=== PATIENT | female | born 1945 | race Caucasian/White ===

== ENCOUNTER 2025-03-18 08:23 | Outpatient (CLI) | payer OTHER, SELFPAY | END 2025-03-18 08:24 | disposition home or self-care (01) | LOC: AMB 03-19 11:34 | PROVIDERS: Visit Provider Emergency Medicine | DX: M54.9 Dorsalgia, unspecified (principal) | CPT/HCPCS: A0425; A0433 ==

== ENCOUNTER 2025-03-18 08:54 | Observation (INO) | payer OTHER, SELFPAY ==
[2025-03-18] VITALS (17 sets, daily range): BP systolic 145–209; BP diastolic 56–102; PULSE 65–84; RESP 14–18; TEMP 36.4–36.7; O2SAT 96–100; BMI 29.1
[2025-03-18 09:37] LABS: Appearance Urine Clear (Clear)
--- NOTE | 2025-03-18 10:06 | ED.GENADULT ---
HPI - General Adult General Date Seen: 03/18/25 Chief complaint: Back Injury/Pain Stated complaint: Back pain Time Seen by Provider: 03/18/25 10:01 History of Present Illness HPI narrative: 80 yo F brought to the ER today by EMS, with low back pain. EMS reports that they gave her 100 mcg of fentanyl and 2 mg of morphine for back pain. Glucose was 221. She moved into an independent living here in [place] yesterday, but did not lift or move anything herself. Her niece, who accompanies her, knows that she has been confused for about 4 days since Saturday and has had some urinary and bowel incontinence. Yesterday was talking about aunts on the floor and seeing people were not in the room. He says that she is on medications but has not been taking them as prescribed. Her PCP is through [facility]. Per history from her niece, she slipped and fell on the ice in September. She was hospitalized 1st [facility] and then transferred to [facility]. She had 3 cervical fractures leading to a cervical fusion. She had some low back pain but apparently did not have any lumbar fractures. It sounds like she had a long recovery in the hospital and then had to go to a TCU for rehab. She was finally doing better and is able to discharge to her own apartment in December. It sounds like she actually was thrive be in rehab and enjoyed social interactions and has been more alone in depressed since she has been her own apartment. Patient gets a lot of support from her niece who is with her here in the ER today and her other niece who lives [facility] of the [facility]. They recently found at a an assisted living here the [facility] and she moved from her apartment in [place] down to [place] yesterday. Apparently she had been looking forward to the movement was enthusiastic about her new living situation because she will have social actions, and even has a GM and a movie theater. The patient has not been doing any physical labor moving her possessions into her new assisted living. Family notes that she has been a little bit off since Saturday, 4 days ago. She has been a little bit more withdrawn, less communicative than normal. She has also been confused. She has actually been hallucinating. She apparently said she saw aunts that no one else could see and also that she was seeing people in the room other people could not see. On Saturday she started to be incontinent of urine. Does not normal for her. She also apparently had diarrhea with a few incontinent stools. Sounds like her stools were liquidy and brown, not bloody or black. This morning her niece came to check on her early. They were looking forward to her 1st breakfast at a new living situation. However she is complaining of bad back pain and was unable to get out of bed. She also continued to be confused. She was not able to get out of bed with her nieces assistance of the called 03 08 and she was brought here to the ER. Related Data Home Medications ?Medication ?Instructions ?Recorded ?Confirmed QC Turmeric Complex 2 cap PO DAILY 03/18/25 03/18/25 acetaminophen 500 mg tablet 1,000 mg PO TID PRN 03/18/25 03/18/25 (Acetaminophen Extra Strength) aloe vera 25 mg capsule 50 mg PO DAILY 03/18/25 03/18/25 apple cider vinegar 1 tab PO DAILY 03/18/25 03/18/25 ascorbic acid (vitamin C) 500 mg 500 mg PO DAILY 03/18/25 03/18/25 capsule calcitonin (salmon) 200 1 spray intranasal (ALT) DAILY 03/18/25 03/18/25 unit/actuation nasal spray cholecalciferol (vitamin D3) 50 50 mcg PO HS 03/18/25 03/18/25 mcg (2,000 unit) capsule cyanocobalamin (vitamin B-12) 500 500 mcg PO DAILY 03/18/25 03/18/25 mcg tablet (B-12 DOTS) empagliflozin 25 mg tablet 25 mg PO DAILY 03/18/25 03/18/25 (Jardiance) ferrous sulfate 325 mg (65 mg 325 mg PO DAILY 03/18/25 03/18/25 iron) tablet (FeroSul) lisinopril 2.5 mg tablet 2.5 mg PO DAILY 03/18/25 03/18/25 metformin 750 mg tablet,extended 1,500 mg PO QPM 03/18/25 03/18/25 release 24 hr omeprazole 20 mg capsule,delayed 20 mg PO DAILY 03/18/25 03/18/25 release pravastatin 40 mg tablet 40 mg PO QHS 03/18/25 03/18/25 PFSH PFSH Social History Smoking Status: Unknown if ever smoked Do you use any of these nicotine containing products: None How often do you have a drink containing alcohol: never AUDIT-C Alcohol total score: 0 Non-prescribed substance use: denies use Exam Narrative: Exam Narrative: Constitutional: Appears well-developed and well-nourished. Alert. Initially has poor eye contact and is looking around the room and staring at the ceiling but not really looking at me. When engaged she is able to answer simple questions. She does know the month and know she is at the hospital. She was not aware she is at [facility]. She is not really able to tell me any history for the past few days. When I ask her if any things hurting she says no she feels fine. However when I asked her to sit up she grimaces and is not able to sit up because she is having bad hip and low back pain. HENT: Head: Atraumatic. Nose: Nose normal. Mouth/Throat: Oral mucosa is clear but dry. Not desiccated or cracked no trismus. Pharynx normal. Tonsils symmetric. No tonsillar enlargement, erythema, or exudate. Eyes: Conjunctivae normal. EOM normal. Pupils equal, round, and reactive to light. No scleral icterus. Neck: Normal range of motion. Neck supple. No tracheal deviation present. No posterior midline tenderness. Cardiovascular: Normal rate, regular rhythm. No gallop. No friction rub. No murmur heard. Symmetric radial and PT artery pulses Pulmonary/Chest: Effort normal. No stridor. No respiratory distress. No wheezes. No rales. No rhonchi . No tenderness. Abdominal: Soft. Bowel sounds normal. No distension. No mass. No tenderness. No rebound. No guarding. Musculoskeletal: She has rolled with assistance of nurses. I do not see any bruising or redness on her back. No definite point tenderness over the T or L-spine. She is having bad back pain that limits her ability to sit up but difficult to localize it. No definite CVA tenderness. RUE: Normal range of motion. No tenderness. No deformity LUE: Normal range of motion. No tenderness. No deformity RLE: Normal range of motion. Trace edema. No tenderness. No deformity LLE: Normal range of motion. Trace edema. No tenderness. No deformity Neurological: Alert and oriented to person, place, . She knows the month but not the date.. Normal strength. CN II-VII intact. No sensory deficit. GCS eye subscore is 4. GCS verbal subscore is 5. GCS motor subscore is 6. Normal coordination Sensory: Normal light touch sensation bilaterally on the anteromedial thigh (L3), medial malleolus (L4), dorsal first web space (L5), lateral malleolus (S1). Strength: 5/5 strength hip flexors on the left but she is limited with right hip flexors because she has a lot of pain when she tries to lift right leg. 5/5 strength in the quadriceps (L4) on the right and left 5/5 strength in the tibialis anterior 5/5 strength in the EHL (L5) on the right and left 5/5 strength in the gastrocnemius (S1) on the right and left 5/5 strength in the hamstring on the right and left Negative straight leg raise bilaterally. Skin: Skin is warm and dry. No rash noted. No pallor. Normal capillary refill. Psychiatric: She is pleasant. Not agitated or combative. Limited Const: Vital Signs, click to edit/add: Vital Signs - 24 hr 03/18/25 09:06 03/18/25 09:06 03/18/25 09:09 Temperature 98.1 F Pulse Rate 76 77 Pulse Rate [Pulse Oximeter] 84 Respiratory Rate 18 Blood Pressure 167/59 H Blood Pressure [Ri ght Upper Arm] 167/59 H Pulse Oximetry 100 100 100 Oxygen Delivery Me thod Room Air Room Air Room Air 03/18/25 09:30 03/18/25 09:32 03/18/25 10:00 Temperature Pulse Rate 76 77 68 Pulse Rate [Pulse Oximeter] Respiratory Rate Blood Pressure 157/64 H Blood Pressure [Ri ght Upper Arm] Pulse Oximetry 99 99 100 Oxygen Delivery Me thod Room Air Room Air Room Air 03/18/25 10:02 03/18/25 10:30 03/18/25 10:32 Temperature Pulse Rate 72 72 71 Pulse Rate [Pulse Oximeter] Respiratory Rate Blood Pressure 174/56 H 154/61 H Blood Pressure [Ri ght Upper Arm] Pulse Oximetry 100 99 99 Oxygen Delivery Me thod Room Air Room Air Room Air 03/18/25 10:59 03/18/25 11:05 03/18/25 11:22 Temperature 97.7 F Pulse Rate 71 Pulse Rate [Pulse Oximeter] Respiratory Rate Blood Pressure 209/102 H Blood Pressure [Ri ght Upper Arm] Pulse Oximetry 100 Oxygen Delivery Me thod Room Air Room Air Course Vital Signs Vital signs: Initial Vital Signs Temperature 98.1 F 03/18/25 09:06 Temperature Source Temporal Artery Scan 03/18/25 09:06 Pulse Rate 76 03/18/25 09:06 Respiratory Rate 18 03/18/25 09:06 Blood Pressure 167/59 H 03/18/25 09:06 Blood Pressure Mean 95 03/18/25 09:06 Blood Pressure Position Sitting 03/18/25 09:06 Pulse Oximetry 100 03/18/25 09:06 Oxygen Delivery Method Room Air 03/18/25 09:06 Vital Signs Temperature 98.1 F 03/18/25 09:06 Pulse Rate 76 03/18/25 09:06 Respiratory Rate 18 03/18/25 09:06 Blood Pressure 167/59 H 03/18/25 09:06 Pulse Oximetry 100 03/18/25 09:06 Oxygen Delivery Method Room Air 03/18/25 09:06 Temperature 97.7 F 03/18/25 10:59 Pulse Rate 71 03/18/25 11:22 Respiratory Rate 18 03/18/25 09:06 Blood Pressure 209/102 H 03/18/25 11:05 Pulse Oximetry 100 03/18/25 11:22 Oxygen Delivery Method Room Air 03/18/25 11:22 Medications Administered Medications: Discontinued Medications Generic Name Dose Route Start Last Admin Trade Name Freq PRN Reason Stop Dose Admin Acetaminophen 1,000 mg 03/18/25 10:41 03/18/25 10:59 Acetaminophen 500 Mg Tablet PO 03/18/25 10:42 1,000 mg ONCE ONE Administration Sodium Chloride 1,000 mls @ 1,000 mls/hr 03/18/25 10:45 03/18/25 11:00 0.9 % Sodium Chloride 1000 Ml IV 03/18/25 11:44 1,000 mls/hr .Q1H [place] Administration Ketorolac Tromethamine 15 mg 03/18/25 10:41 03/18/25 10:59 Ketorolac 15 Mg/Ml Inj IVP 03/18/25 10:42 15 mg ONCE ONE Administration Medical Decision Making MDM Narrative Medical decision making narrative: 80-year-old female brought to the ER today by EMS. She is accompanied by her family. There are couple of issues for this patient. 1. The reason why she is here in the ER today is because she has got low back pain. She does have history of a fall on the ice in September of 2024 leading to a complicated C-spine fracture requiring surgery. It sounds like she did not have any significant lumbar spine injury from that fall but did have some low back pain. She has no recent falls that she or her family are aware of. CT scan of her abdomen and lumbar spine does show evidence for an lung L1 compression fracture which is mild. It is possible that this L1 fracture is acute although unclear however would have happened. If it is it could explain her low back pain. This point she is neurologically intact in her legs. No evidence for other fractures such as burst fracture. No evidence for pelvic or hip fracture. At this point I do not think she needs transfer for neurosurgical consultation or intervention. However she still is having low back pain which limits her ability to sit up and walk. She will require hospitalization for pain control, physical therapy, further workup. 2. Family notes the patient has a chains in her sensorium over the past few days where she has become less interactive, seemingly confused, and sometimes having loosen a shins. Initially they thought this was probably just stress from being moved to a new living situation. However we did consider broad differential. Head CT is negative for bleed, mass, hydrocephalus. She is not having headache. No neck stiffness. She is not febrile. Despite that consider possible for infection. Blood cultures are pending. White count is normal. Urinalysis negative for infection. No evidence for intra-abdominal infection on CT. Incidentally she did have an episode of diarrhea a couple of days ago so if she has persistent diarrhea, we could consider stool studies to look for bacterial enteritis or C diff. she is not having any cough or shortness of breath. Lung sounds are clear. COVID is negative Electrolytes normal. Kidney function normal. Screening EKG normal troponin undetectable. She is not having any chest pain Discussed with our hospitalist, Dr. uFnez who graciously agrees to admit for supportive care, pain control for her back, further workup. Lab Data Labs: Lab Results 03/18/25 03/18/25 03/18/25 Range/Units 09:30 10:48 11:04 WBC 5.44 (4.50-11.00) K/uL RBC 4.21 (4.00-5.20) m/uL Hgb 11.5 L (12.0-16.0) gm/dL Hct 36.9 (33.0-51.0) % MCV 88 (80-100) fL MCH 27 (26-34) pg MCHC 31 L (32-36) gm/dL RDW Coeff of Mariam 14.4 (11.5-15.5) % Plt Count 202 (140-440) K/uL Neut % (Auto) 71.3 (42.0-72.0) % Lymph % (Auto) 17.1 L (20-44) % [place] % (Auto) 7.7 (0.0-11.0) % Eos % (Auto) 3.1 (0.0-7.0) % Baso % (Auto) 0.6 (0.0-3.0) % Neut # (Auto) 3.88 (1.7-7.0) K/uL Lymph # (Auto) 0.90 (0.90-2.90) K/uL [place] # (Auto) 0.40 (0.00-0.90) K/UL Eos # (Auto) 0.17 (0.00-0.50) K/uL Baso # (Auto) 0.03 (0.00-0.30) K/uL Abs Immat Gran (auto) 0.01 (0.00-0.30) K/uL Imm/Tot Granulo (auto) 0.2 % Sodium 136 (135-149) mmol/L Potassium 4.1 (3.6-5.1) mmol/L Chloride 102 (96-114) mmol/L Carbon Dioxide 28 (20-32) mmol/L Anion Gap 6 L (7-15) mEq/L BUN 18 (7-30) mg/dL Creatinine 0.7 (0.5-1.5) mg/dL Estimated GFR 86 ml/min Glucose 145 H (60-115) mg/dL Lactate 0.8 (0.5-1.9) mmol/L Calcium 9.1 (8.4-10.6) mg/dL Total Bilirubin 1.5 (0.1-1.5) mg/dL AST 20 (12-35) U/L ALT 9 (4-35) U/L Alkaline Phosphatase 131 (40-150) U/L Troponin I 0.02 (0.01-0.04) ng/mL Total Protein 6.6 (6.0-8.3) g/dL Albumin 3.8 (3.3-5.0) g/dL Lipase 37 (23-300) U/L TSH 2.040 (0.270-4.200) uIU/mL Urine Color Yellow (Yellow) Urine Appearance Clear (Clear) Urine pH 7.0 (5.0-8.5) Ur Specific [place] 1.015 (1.000-1.030) Urine Protein Negative (Negative) Urine Glucose (UA) 2+ A (Negative) Urine Ketones Negative (Negative) Urine Blood Trace-intact A (Negative) Urine Nitrite Negative (Negative) Urine Bilirubin Negative (Negative) Urine Urobilinogen 1.0 (0.2-1.0) Ur Leukocyte Esterase Negative (Negative) Urine RBC 5-10 A (0-2) Urine WBC 0-2 (0-5) Ur Squamous Epith Cells None (None-Few) Urine Bacteria None (None) SARS-CoV-2 (PCR) Negative SARS-CoV-2 (Negative) Influenza Type A (PCR) Negative PCR FLU A (Negative) Influenza Type B (PCR) Negative PCR FLU B (Negative) POC Creatinine 0.8 (0.6-1.3) mg/dl Imaging Data CT scan - head: Attestation: I have reviewed the pertinent imaging results. Radiologist's impression: IMPRESSION: 1. No acute intracranial noncontrast CT findings. 2. [id number] brain parenchymal involutional changes. 3. Right posterior scalp a 17 millimeter oval soft tissue attenuation lesion which is a nonspecific imaging appearance, although a epidermal inclusion cyst is one differential consideration. Correlate with physical exam. CT scan - abdomen: Attestation: I have reviewed the pertinent imaging results. Radiologist's impression: IMPRESSION: 1. No discrete acute abdominopelvic process. No obstruction. No hydroureteronephrosis. No imaging findings to explain the reported clinical symptoms. 2. Refer to dedicated lumbar spine CT of same day for assessment of the vertebral column. CT L spine: Attestation: I have reviewed the pertinent imaging results. Radiologist's impression: Impression: Subtle compression fracture of the anterosuperior L1 endplate without evidence of additional compression fractures or extension to the posterior elements. ECG Data Attestation: I personally reviewed and interpreted this ECG as follows: Interpretation: Normal sinus rhythm Rate 79 MN interval 162 Normal QRS axis. No pathologic Q-waves. No ST segment elevation or depression QTC 384, QTC 440 Discharge Plan Discharge Clinical Impression: Closed compression fracture of L1 vertebra, Acute alteration in mental status Patient Disposition: Admitted As Observation Condition: Guarded
--- NOTE | 2025-03-18 10:41 | CRLHL7_ITS ---
For Patients: As a result of the Century Cures Act, medical imaging exams and procedure reports are released immediately into your electronic medical record. You may view this report before your referring provider. If you have questions, please contact your health care provider. Indication: Low back pain Technique: Volumetric multidetector CT images of the lumbar spine were obtained without the administration of IV contrast. Comparison: CT abdomen and pelvis March 18, 2025 Findings: Minimal compression fracture change of the superior L1 endplate is appreciated with additional Schmorl`s defects seen throughout. There is preserved lumbar lordosis without significant spondylolisthesis. There is moderate degenerative disc disease with disc height loss and marginal osteophyte formation worst at the L2-L3 level. There is [id number] spinal canal narrowing at the L2-L3 and L3-L4 levels. There is moderate to severe focal narrowing at the L4-L5 level. There is a nondisplaced fracture through the superior L1 endplate without evidence of extension to the posterior elements. The paraspinous soft tissues are grossly within normal limits. Impression: Subtle compression fracture of the anterosuperior L1 endplate without evidence of additional compression fractures or extension to the posterior elements. Please note that all CT scans at this facility use dose modulation, iterative reconstruction, and/or weight-based dosing when appropriate to reduce radiation dose to as low as reasonably achievable. Dictated by Saw Harrison MD @ 03/18/2025 11:54:21 AM (Electronically Signed)
--- NOTE | 2025-03-18 10:41 | CRLHL7_ITS ---
For Patients: As a result of the Century Cures Act, medical imaging exams and procedure reports are released immediately into your electronic medical record. You may view this report before your referring provider. If you have questions, please contact your health care provider. INDICATION: ABD PAIN, BACK PAIN TECHNIQUE: CT abdomen and pelvis acquired with 81 cc Isovue 370 IV contrast. COMPARISON: None. FINDINGS: Lower chest: Motion. ABDOMEN: Liver: Normal enhancement. No focal suspicious hepatic lesions. Gallbladder and biliary: Cholecystectomy. Pneumobilia. Normal caliber bile ducts. Spleen: Normal size and enhancement. Pancreas: Relatively atrophic pancreas. Adrenal glands: Normal adrenal glands. Kidneys and ureters: Renal cysts. Subcentimeter hypodensities are too small to characterize however statistically represent cysts. Normal parenchymal enhancement. No hydroureteronephrosis. GI tract: The stomach is relatively decompressed. Normal caliber small and large bowel loops. Normal appendix. Vascular structures: Normal caliber aorta with atherosclerotic calcifications. Lymph nodes: No lymphadenopathy in the abdomen or pelvis by size criteria. Peritoneum: No free air, free fluid, or focal drainable fluid collection. PELVIS: Genitourinary system: Normal urinary bladder. Hysterectomy. SKELETAL STRUCTURES AND SOFT TISSUES: Vertebral body hemangiomas. Lumbar spondylosis. Refer to dedicated lumbar spine CT of same day for assessment of the vertebral column. SI joint arthrosis. IMPRESSION: 1. No discrete acute abdominopelvic process. No obstruction. No hydroureteronephrosis. No imaging findings to explain the reported clinical symptoms. 2. Refer to dedicated lumbar spine CT of same day for assessment of the vertebral column. Please note that all CT scans at this facility use dose modulation, iterative reconstruction, and/or weight-based dosing when appropriate to reduce radiation dose to as low as reasonably achievable. Dictated by Mu Swan MD @ 03/18/2025 11:59:23 AM (Electronically Signed)
--- NOTE | 2025-03-18 10:41 | CRLHL7_ITS ---
For Patients: As a result of the Century Cures Act, medical imaging exams and procedure reports are released immediately into your electronic medical record. You may view this report before your referring provider. If you have questions, please contact your health care provider. INDICATION: Altered mental status. COMPARISON: None. TECHNIQUE: CT of the head without contrast. FINDINGS: Brain, ventricles, and extra-axial spaces: No acute intracranial hemorrhage. Urban-white differentiation is grossly preserved. [id number] hypoattenuating changes in the white matter which are nonspecific, but commonly attributable to chronic microangiopathic change. Mild to moderate parenchymal volume loss with commensurate size of the ventricles and sulci. Bones: No acute osseous findings. Scattered mild mucosal thickening in the paranasal sinuses. Leftward deviation of the nasal septum. Visualized mastoid air cells are clear. Additional findings: Oval sharply marginated right posterior scalp 17 millimeter soft tissue attenuation lesion centered in the subcutaneous fat (2/36). Status post bilateral lens replacement. IMPRESSION: 1. No acute intracranial noncontrast CT findings. 2. Keae-wq-[id number] brain parenchymal involutional changes. 3. Right posterior scalp a 17 millimeter oval soft tissue attenuation lesion which is a nonspecific imaging appearance, although a epidermal inclusion cyst is one differential consideration. Correlate with physical exam. Please note that all CT scans at this facility use dose modulation, iterative reconstruction, and/or weight-based dosing when appropriate to reduce radiation dose to as low as reasonably achievable. Dictated by Rowdy Agee MD @ 03/18/2025 11:52:24 AM (Electronically Signed)
[2025-03-18] MEDS: ACETAMINOPHEN 500 MG TABLET 1000 MG PO (10:59)
[2025-03-18 11:11] LABS: Creatinine, Point-of-Care* 0.8 mg/dl (0.6-1.3); Lactate* 0.8 mmol/L (0.5-1.9)
[2025-03-18 11:14] LABS: Hematocrit 36.9 % (33.0-51.0); Hemoglobin* 11.5 gm/dL (12.0-16.0); Immature Granulocytes Abs Auto 0.01 K/uL (0.00-0.30); Immature Granulocytes Pct Auto 0.2 %; Mean Corpuscular HGB Conc 31 gm/dL (32-36); Mean Corpuscular Hemoglobin 27 pg (26-34); Mean Corpuscular Volume 88 fL (80-100); RDW Coefficient of Variation % 14.4 % (11.5-15.5); Red Blood Count 4.21 m/uL (4.00-5.20); White Blood Count* 5.44 K/uL (4.50-11.00)
[2025-03-18 11:23] LABS: Lymphocytes Absolute Auto 0.90 K/uL (0.90-2.90); Slide Review Reflex No
[2025-03-18 11:49] LABS: Albumin* 3.8 g/dL (3.3-5.0); Chloride* 102 mmol/L (96-114); Potassium* 4.1 mmol/L (3.6-5.1); Sodium* 136 mmol/L (135-149)
[2025-03-18 11:51] LABS: Alanine Aminotransferase* 9 U/L (4-35); Aspartate Amino Transferase* 20 U/L (12-35); Blood Urea Nitrogen* 18 mg/dL (7-30); Creatinine* 0.7 mg/dL (0.5-1.5); Estimated Glomerular Filt Rate 86 ml/min
[2025-03-18 11:52] LABS: Alkaline Phosphatase* 131 U/L (40-150); Anion Gap 6 mEq/L (7-15); Bilirubin Total* 1.5 mg/dL (0.1-1.5); Calcium* 9.1 mg/dL (8.4-10.6); Carbon Dioxide* 28 mmol/L (20-32); Glucose* 145 mg/dL (60-115); Total Protein* 6.6 g/dL (6.0-8.3)
[2025-03-18 11:54] LABS: PCR FLU A Negative PCR FLU A (Negative); PCR FLU B Negative PCR FLU B (Negative); SARS PCR* Negative SARS-CoV-2 (Negative)
[2025-03-18 12:38] LABS: TSH With Reflex to FT4* 2.040 uIU/mL (0.270-4.200)
[2025-03-18] MEDS: NAPROXEN 250 MG TABLET PO (15:18)
--- NOTE | 2025-03-18 15:28 | P.IMHP_ITS ---
Assessment and Plan Assessment and plan (1) Acute alteration in mental status: Problem comment: Cause is uncertain. Possibly related to moving residence from [place] to [place]. Continue to monitor. Status: Acute (2) Low back pain: Problem comment: Episode of severe low back pain this morning. Examination today is reassuring. PT to evaluate. If she is able to ambulate I think she could be discharged to manage this as an outpatient. Due to dementia and acute confusion would like to avoid opioids. Will try Naprosyn and acetaminophen for pain management. Status: Acute (3) Closed compression fracture of L1 vertebra: Problem comment: I suspect this is old, possibly from September 2024, rather than acute Status: Acute (4) Dementia: Problem comment: Uncertain severity. Status: Acute (5) Diabetes mellitus type 2, controlled: Problem comment: Check hemoglobin A1c. Monitor blood sugars. Status: Acute (6) Hypertension: Status: Acute Plan Patient is admitted to the hospital for evaluation management of acute on chronic back pain and acute on chronic confusion. Based on clinical course further evaluation and treatment to be pursued. Obtain records from outside hospital to understand other potential problems and previous diagnosis and baseline functioning. Total Time Spent Total Time Spent: Total time spent today is 70 minutes in coordination of care and discussing with patient and daughter and other providers ongoing evaluation management of above problems Hospitalist- H&P: HPI History of Present Illness Date Seen: 03/18/25 Chief complaint: Back pain Narrative: Catalina Grant is a 80 year old female with dementia admitted to the hospital with acute on chronic back pain and acute on chronic confusion. Patient is seen with her niece who gives the medical history as the patient is unable to give any significant history and outside medical records are not currently available. Patient was living in her own home in [facility]. There was concern that she was not doing well and would benefit from assisted living. Her niece Ruth who is healthcare power of disability attorney and closest family lives in [place]. She made arrangements this summer for her to move to [facility] on the [facility]. That move occurred yesterday. She did see more confused yesterday and the niece thought this was just because of the move. This morning she seemed even more confused and was complaining of severe low back pain. Because of this she was brought to the emergency room. The paramedics gave her fentanyl and morphine for her back pain. There is no evidence that she had an injury to her back that is new. She cannot recall a fall and her niece does not recall any event yesterday with the move that would have caused this. According to the knee she has been more confused recently and she has been hallucinating on occasion. There is also been some increased problems with her managing bowel and bladder and she has occasionally had episodes of incontinence. September of 2024 she fell on ice and sustained cervical fractures leading to cervical spine fusion. At that time she also apparently had a minor lumbar fracture which required no specific therapy. She was hospitalized at [facility] and then transferred to [facility] for rehab. In December she moved back home with outpatient rehab and ongoing support from her niece was visiting 3 times a week. Her knees with setting up her medications and checking on her. The impression was that she was doing quite well but would benefit from being in a more social environment and a more supervised environment such as [facility]. The patient has a brother who who was previously power of disability attorney but has dementia now. Ruth who is current power of disability attorney also has a sister Kayleigh but Kayleigh lives 3 hours away and is not as available for day-to-day cares. Review of Systems Narrative: No recent illness, dyspnea, cough, chest pain, abdominal pain. Chronic back pain which was much worse this morning. Some bowel bladder incontinence. The bowel incontinence associated with some diarrhea recently. The niece notes that her aunt eats a very poor diet. She does not think that her aunt is able to provide dental hygiene for herself. Medical Decision Making Medical Decision Making Has patient completed a Health Care Directive: Yes [facility] Medical History (Updated 03/18/25 @ 15:49 by Sergey Rivera MD) Dementia ?F03.90 - Unspecified dementia, unspecified severity, without behavioral disturbance, psychotic disturbance, mood disturbance, and anxiety (ICD-10) Hyperlipidemia ?E78.5 - Hyperlipidemia, unspecified (ICD-10) Diabetes mellitus type 2, controlled ?E11.9 - Type 2 diabetes mellitus without complications (ICD-10) Hypertension ?I10 - Essential (primary) hypertension (ICD-10) Cervical spine fracture ?S12.9XXA - Fracture of neck, unspecified, initial encounter (ICD-10) Surgical History (Updated 03/18/25 @ 15:43 by Sergey Rivera MD) S/P cervical spinal fusion ?Z98.1 - Arthrodesis status (ICD-10) Social History (Updated 03/18/25 @ 15:44 by Sergey Rivera MD) Narrative: See HPI for details. Code status is DNR. Power of disability attorney is Ruth her niece. Nonsmoker. Does not drink alcohol. What is your current living situation?: I presently have a place to live Problems where you live: no known problems Problems where you live details: NA In the past 12 months, utilities in danger of being shut off: no In past 12 months, lack of transportation kept you from medical appts, meetings, work, or getting things needed for daily living: no In the past 12 mos, have been you worried that your food would run out before you had money to buy more?: never true In the past 12 mos, the food you bought just didn't last and you didn't have money to buy more?: never true Highest level of school completed/degree received: some college, no degree Smoking Status: Never smoker Do you use any of these nicotine containing products: None How often do you have a drink containing alcohol: never AUDIT-C Alcohol total score: 0 Non-prescribed substance use: denies use Caffeine: Yes (some pop) How often does anyone, including family, friends and others, physically hurt you : never How often does anyone, including family, friends and others, insult or talk down to you: never How often does anyone, including family, friends and others, threaten you with harm: never How often does anyone, including family, friends and others, scream or curse at you: never service: No Meds Home Medications and Allergies Home Medications ?Medication ?Instructions ?Recorded ?Confirmed ?Type QC Turmeric Complex 2 cap PO DAILY 03/18/2503/08 History acetaminophen 500 mg tablet 1,000 mg PO TID PRN 03/18/25 History (Acetaminophen Extra Strength) aloe vera 25 mg capsule 50 mg PO DAILY 03/18/2503/08 History apple cider vinegar 1 tab PO DAILY 03/18/2503/08 History ascorbic acid (vitamin C) 500 mg 500 mg PO DAILY 03/1803/18/25 History capsule cholecalciferol (vitamin D3) 50 50 mcg PO HS 03/18/25 03/18/25 History mcg (2,000 unit) capsule cyanocobalamin (vitamin B-12) 500 500 mcg PO DAILY 06/0103/18/25 History mcg tablet (B-12 DOTS) empagliflozin 25 mg tablet 25 mg PO QPM 03/18/2503/18 History (Jardiance) ferrous sulfate 325 mg (65 mg 325 mg PO DAILY 03/18/25 03/18/25 History iron) tablet (FeroSul) lisinopril 2.5 mg tablet 2.5 mg PO DAILY 03/18/2506/01 History metformin 750 mg tablet,extended 1,500 mg PO QPM 03/1803/18/25 History release 24 hr omeprazole 20 mg capsule,delayed 20 mg PO DAILY 03/18/25 History release pravastatin 40 mg tablet 40 mg PO HS 03/18/25 5 History Allergies Allergy/AdvReac Type Severity Reaction Status Date / Time No Known Drug Allergies Allergy Verified 03/18/25 13:14 Exam Narrative: Exam Narrative: She is alert pleasant and in no distress. She is not oriented to her circumstances. She does not know where she is or how she got here. She is denying any problems at this time. Head is without apparent trauma. Eyes normal. Pupils equal round reactive to light. Extraocular movements are full. Oropharynx with dry mucous membranes. Moderate dental decay with poor dental hygiene. Neck is supple without mass or adenopathy. Respirations are clear to auscultation. Cardiovascular: S1, S2, regular rate and rhythm. Abdomen is soft without tenderness or mass. Examination of her back is normal without obvious trauma. Palpation shows that she has mild lumbar area tenderness without focal tenderness. This extends somewhat into her right low back towards her right iliac crest. She moves her upper extremities well. Lower extremities also with symmetric full strength in hip flexion, knee flexion and extension, ankle flexion and dorsiflexion. No edema. Diminished but intact pedal pulses. No rash. Const: Vital Signs, click to edit/add: Vital Signs - 24 hr 03/18/25 09:06 03/18/25 09:06 03/18/25 09:09 Temperature 98.1 F Pulse Rate 76 77 Pulse Rate [Pulse Oximeter] 84 Pulse Rate [Right Pulse Oximeter] Respiratory Rate 18 Blood Pressure 167/59 H Blood Pressure [Le ft Arm] Blood Pressure [Ri ght Upper Arm] 167/59 H Pulse Oximetry 100 100 100 Oxygen Delivery Me thod Room Air Room Air Room Air 03/18/25 09:30 03/18/25 09:32 03/18/25 10:00 Temperature Pulse Rate 76 77 68 Pulse Rate [Pulse Oximeter] Pulse Rate [Right Pulse Oximeter] Respiratory Rate Blood Pressure 157/64 H Blood Pressure [Le ft Arm] Blood Pressure [Ri ght Upper Arm] Pulse Oximetry 99 99 100 Oxygen Delivery Me thod Room Air Room Air Room Air 03/18/25 10:02 03/18/25 10:30 03/18/25 10:32 Temperature Pulse Rate 72 72 71 Pulse Rate [Pulse Oximeter] Pulse Rate [Right Pulse Oximeter] Respiratory Rate Blood Pressure 174/56 H 154/61 H Blood Pressure [Le ft Arm] Blood Pressure [Ri ght Upper Arm] Pulse Oximetry 100 99 99 [facility] Room Air Room Air 03/18/25 10:59 03/18/25 11:05 03/18/25 11:22 Temperature 97.7 F Pulse Rate 71 Pulse Rate [Pulse Oximeter] Pulse Rate [Right Pulse Oximeter] Respiratory Rate Blood Pressure 209/102 H Blood Pressure [Le ft Arm] Blood Pressure [Ri ght Upper Arm] Pulse Oximetry 100 [facility] Room Air 03/18/25 13:00 03/18/25 14:07 Temperature 97.7 F Pulse Rate Pulse Rate [Pulse Oximeter] 66 Pulse Rate [Right Pulse Oximeter] 65 Respiratory Rate 18 18 Blood Pressure Blood Pressure [Le ft Arm] 150/63 H Blood Pressure [Ri ght Upper Arm] 149/59 H Pulse Oximetry 99 Oxygen Delivery Ne thod Room Air Hospitalist - H&P: Result Labs Labs: Short CBC 03/18/25 Range/Units 11:04 WBC 5.44 (4.50-11.00) K/uL Hgb 11.5 L (12.0-16.0) gm/dL Hct 36.9 (33.0-51.0) % Plt Count 202 (140-440) K/uL BMP 03/18/25 11:04 Sodium 136 Potassium 4.1 Chloride 102 Carbon Dioxide 28 BUN 18 Creatinine 0.7 Glucose 145 H Calcium 9.1 Cardiac Enzymes 03/18/25 Range/Units 11:04 Troponin I 0.02 (0.01-0.04) ng/mL Liver Function 03/18/25 Range/Units 11:04 Total Bilirubin 1.5 (0.1-1.5) mg/dL AST 20 (12-35) U/L ALT 9 (4-35) U/L Alkaline Phosphatase 131 (40-150) U/L Albumin 3.8 (3.3-5.0) g/dL Urine 03/18/25 Range/Units 09:30 Urine Color Yellow (Yellow) Urine Appearance Clear (Clear) Urine pH 7.0 (5.0-8.5) Ur Specific [place] 1.015 (1.000-1.030) Urine Protein Negative (Negative) Urine Glucose (UA) 2+ A (Negative)
--- NOTE | 2025-03-18 16:20 | PC.SOCIAL ---
Discharge planning: composition worker completed the Initial Psychosocial Assessment for the pt with her niece Ruth over the phone. See the below answers... Initial Psychosocial Assessment: 1.? Assessment completed with: Patient, Spouse, Child, Friend, Other: Niece, Ruth, via phone. 2.? Pt lives at address and phone number on face sheet? Own home; facility___Yes. [facility]. , Other: 3.?Insurance information? on face sheet is correct? Pt also has Medicare. Pt has her Medicare card with her in her purse at the hospital per her niece. 4.?Contacts? on face sheet are correct? Yes. 5.? Does pt have a Healthcare Directive, POLST or Guardian? Yes. HCD and POA. Niece turned these into the [employer] to be scanned to the pt's file. 6.? Who is the pt?s main source/sources of emotional/physical support? Ruth Morales. 7.? Prior to admission did pt need assistance? Yes/No= YES. 8.? Who provided and what was the assistance needed? Pt's niece had assisted her with weekly medication set-up and reminders to take her medications, grocery shopping, cleaning, laundry and rides to medical appointments prior to her move to [facility] in [place]. Pt has been under stress this past month prior to moving and has been more confused this past week. Pt's niece states that the pt has forgotten to take some of her medications over the past week. Pt's niece is hoping this all gets better once she is more settled in her new apartment. Niece is able to check-in on her 4-5 times a week right now at [facility] now that pt lives in [facility]. Pt was in [place] before and an hour away from her niece, who lives in [place] and would only make it there 1-2x a week to assist the pt. Pt's niece plans to continue setting up pt's medications in a weekly pill container and monitor that she is taking her medications when she should. Pt will also have housekeeping, laundry and daily garbage removal at [facility]. 9.? Was Home Health being provided, by what agency? No. 10. Does pt use/have medical equipment at home already? What? No. 11. Will there be a need for additional assistance at discharge and is this available in previous setting? Most likely. composition worker will need to check if more assistance is available at [facility]. 12. If pt needs to go to a higher level of care, are they open to this and do they have facilities they are interested in? Yes. [facility] with more services in place would be preferred, but family is willing to see what PT/OT recommend. 13. How would pt plan to transport at discharge? Ruth Morales. 14. Is there anyone pt would like director social welfare to contact to discuss discharge plans? Ruth Morales. Social work to follow-up as needed.
[2025-03-18] MEDS: EMPAGLIFLOZIN 25 MG TABLET PO (19:06)
[2025-03-18] MEDS: ACETAMINOPHEN 500 MG TABLET 975 MG PO (19:06)
[2025-03-18] MEDS: LIDOCAINE 5% PATCH 1 PATCH TRANSDERMA (19:06)
[2025-03-18] MEDS: METFORMIN ER 500 MG 1500 MG PO (19:07)
--- NOTE | 2025-03-18 19:18 | PC.NURSE ---
Nursing Care Hours: [id number] Pt this shift calm and cooperative, alert to self. Pt unable to get up from bed d/t low back pain. Attempts to assist pt to sitting while in bed met with resistance and increase pain aeb wincing, crying, and yelling stop. Pt administered scheduled pain medications and lidocaine patch. Pt unable to raise HOB past 30 degrees initially but after pain meds, was able to go to about 45 degrees. Pt able to feed self, no signs of aspiration. Bladder scan done, see results. No void from pt.
[2025-03-18] MEDS: SODIUM CHLORIDE 0.9 % (FLUSH) 10 ML SYRINGE 5 ML IVF (20:56)
[2025-03-18] MEDS: PRAVASTATIN SODIUM 20 MG TABLET 40 MG PO (20:56)
[2025-03-19 04:30] VITALS: BP 180/79; PULSE 75; RESP 16; TEMP 36.8; O2SAT 99
--- NOTE | 2025-03-19 06:09 | PC.NURSE ---
End of shift ([id number]): Pt pleasant, alert and oriented to self. Pt stated tolerating back pain throughout shift. Purewick in place, tolerating well. Pt frustrated at times, somewhat easily redirectable. Pt in bed, appears to be resting, call light within reach.?
[2025-03-19] MEDS: NAPROXEN 250 MG TABLET PO (08:03)
[2025-03-19 08:05] VITALS: BP 177/68; PULSE 78; RESP 20; TEMP 36.7; O2SAT 100
[2025-03-19] MEDS: SODIUM CHLORIDE 0.9 % (FLUSH) 10 ML SYRINGE 5 ML IVF (08:20)
[2025-03-19] MEDS: OMEPRAZOLE 20 MG CAPSULE DR PO (08:20)
[2025-03-19] MEDS: FERROUS SULFATE 325 MG TABLET PO (08:20)
[2025-03-19] MEDS: ACETAMINOPHEN 325 MG TABLET 975 MG PO (10:26)
[2025-03-19 12:08] VITALS: BP 136/66; PULSE 77; RESP 16; TEMP 36.6; O2SAT 99
[2025-03-19] MEDS: INSULIN ASPART 100 UNIT/ML SUBCUT (12:12)
--- NOTE | 2025-03-19 13:35 | NUTR.NU ---
Nutrition: Nursing referral for skin risk and MST, intake probably inadequate and loss of 2 to 13 lbs. Admit with altered mental status and low back pain. Height 5' 5, Weight 178.6 lbs, BMI 29.1. No chart weight history available. Diet Regular. Intake 50% at dinner 03/18 and 75% at breakfast today. Attempted to visit patient. Patient discharged. She moved into assisted living 2 days ago.
--- NOTE | 2025-03-19 13:39 | P.DS_ITS ---
DS: Providers Provider Date Seen: 03/19/25 Date of admission: 03/18/25 13:30 Primary care physician: Not a Local Provider Admitting Clinician: Sergey Rivera MD Attending Physician on discharge: Sergey Rivera MD Date of Discharge: 03/19/25 DS: Diagnosis Discharge Diagnosis (1) Acute alteration in mental status: Status: Acute Problem details: Cause is uncertain. Possibly related to moving residence from [place] to [place]. Confused but otherwise stable overnight. [place] on 03/19/2025 is 11/30 (2) Low back pain: Status: Acute Problem details: Episode of severe low back pain on admission.. Examination today is reassuring. PT evaluation shows that she is able to ambulate fairly well but does have back pain getting from supine to sitting to standing (3) Closed compression fracture of L1 vertebra: Status: Acute Problem details: I suspect this is old, possibly from September 2024, rather than acute. (4) Dementia: Status: Acute Problem details: Uncertain severity. (5) Diabetes mellitus type 2, controlled: Status: Acute Problem details: Check hemoglobin A1c. Monitor blood sugars. (6) Hypertension: Status: Acute DS: Summary Hospital Course Hospital Course: Catalina Grant is a 80 year old female with dementia admitted to the hospital with acute on chronic back pain and acute on chronic confusion. Patient is seen with her niece who gives the medical history as the patient is unable to give any significant history and outside medical records are not currently available. Patient was living in her own home in [facility]. There was concern that she was not doing well and would benefit from assisted living. Her niece Ruth who is healthcare power of director digital sales and closest family lives in [place]. She made arrangements this summer for her to move to [facility] on the [facility]. That move occurred yesterday. She did see more confused yesterday and the niece thought this was just because of the move. This morning she seemed even more confused and was complaining of severe low back pain. Because of this she was brought to the emergency room. The paramedics gave her fentanyl and morphine for her back pain. There is no evidence that she had an injury to her back that is new. She cannot recall a fall and her niece does not recall any event yesterday with the move that would have caused this. According to the knee she has been more confused recently and she has been hallucinating on occasion. There is also been some increased problems with her managing bowel and bladder and she has occasionally had episodes of incontinence. September of 2024 she fell on ice and sustained cervical fractures leading to cervical spine fusion. At that time she also apparently had a minor lumbar fracture which required no specific therapy. She was hospitalized at [facility] and then transferred to [facility] for rehab. In December she moved back home with outpatient rehab and ongoing support from her niece was visiting 3 times a week. Her knees with setting up her medications and checking on her. The impression was that she was doing quite well but would benefit from being in a more social environment and a more supervised environment such as [facility]. The patient has a brother who who was previously power of director digital sales but has dementia now. Ruth who is current power of director digital sales also has a sister Kayleigh but Kayleigh lives 3 hours away and is not as available for day-to-day cares. 03/19/2025: Her mental status have been stable overnight with ongoing confusion. She is mostly been cooperative and able to feed herself. She remains disoriented to her circumstances. Evaluation by therapy shows that she currently seems to be needing more close supervision due to cognitive defects. She is having back pain but mobility is fairly good with back pain primarily changing positions Status at Discharge Functional status at discharge: uses cane/walker Overall status at discharge: patient is progressing back to baseline Time Spent with Patient Time attestation: Total time spent providing and/or coordinating discharge services:45 minutes Exam Narrative: Exam Narrative: She is alert and pleasant no distress. Respirations are clear to auscultation. Breathing is unlabored. Cardiovascular: S1, S2, regular rate and rhythm. Abdomen is soft without tenderness or mass. She moves all 4 extremities well. Const: Vital Signs, click to edit/add: Vital Signs - 24 hr 03/18/25 14:07 03/18/25 15:00 03/18/25 19:00 Temperature Pulse Rate [Right Pulse Oximeter] 65 65 68 Respiratory Rate 18 18 16 Blood Pressure [Le ft Arm] 150/63 H 162/62 H Blood Pressure [Ri ght Arm] Pulse Oximetry 97 Oxygen Delivery Me thod Room Air 03/18/25 23:35 03/18/25 23:40 03/19/25 04:30 Temperature 97.6 F 98.2 F Pulse Rate [Right Pulse Oximeter] 71 71 75 Respiratory Rate 14 14 16 Blood Pressure [Le ft Arm] 145/59 H 180/79 H Blood Pressure [Ri ght Arm] Pulse Oximetry 96 99 Oxygen Delivery Me thod Room Air Room Air 03/19/25 08:05 03/19/25 08:05 03/19/25 12:08 Temperature 98.1 F 97.9 F Pulse Rate [Right Pulse Oximeter] 78 78 77 Respiratory Rate 20 20 16 Blood Pressure [Le ft Arm] Blood Pressure [Ri ght Arm] 177/68 H 136/66 Pulse Oximetry 100 99 Oxygen Delivery Me thod Room Air Room Air DS: Data Data Completed and Pending Labs on day of discharge: Labs from last 24 hours 03/18/25 03/18/25 15:40 10:43 Hemoglobin A1c 7.0 H TSH Cancelled Lab Acknowledgement Test Added Preliminary micro results at discharge 03/18/25 11:04 Blood Culture - Preliminary Blood NO GROWTH AFTER [address] scan - abdomen: Radiologist's impression: INDICATION: ABD PAIN, BACK PAIN TECHNIQUE: CT abdomen and pelvis acquired with 81 cc Isovue 370 IV contrast. COMPARISON: None. FINDINGS: Lower chest: Motion. ABDOMEN: Liver: Normal enhancement. No focal suspicious hepatic lesions. Gallbladder and biliary: Cholecystectomy. Pneumobilia. Normal caliber bile ducts. Spleen: Normal size and enhancement. Pancreas: Relatively atrophic pancreas. Adrenal glands: Normal adrenal glands. Kidneys and ureters: Renal cysts. Subcentimeter hypodensities are too small to characterize however statistically represent cysts. Normal parenchymal enhancement. No hydroureteronephrosis. GI tract: The stomach is relatively decompressed. Normal caliber small and large bowel loops. Normal appendix. Vascular structures: Normal caliber aorta with atherosclerotic calcifications. Lymph nodes: No lymphadenopathy in the abdomen or pelvis by size criteria. Peritoneum: No free air, free fluid, or focal drainable fluid collection. PELVIS: Genitourinary system: Normal urinary bladder. Hysterectomy. SKELETAL STRUCTURES AND SOFT TISSUES: Vertebral body hemangiomas. Lumbar spondylosis. Refer to dedicated lumbar spine CT of same day for assessment of the vertebral column. SI joint arthrosis. IMPRESSION: 1. No discrete acute abdominopelvic process. No obstruction. No hydroureteronephrosis. No imaging findings to explain the reported clinical symptoms. 2. Refer to dedicated lumbar spine CT of same day for assessment of the vertebral column. Lumbar spine CT: Radiologist's impression: Indication: Low back pain Technique: Volumetric multidetector CT images of the lumbar spine were obtained without the administration of IV contrast. Comparison: CT abdomen and pelvis March 18, 2025 Findings: Minimal compression fracture change of the superior L1 endplate is appreciated with additional Schmorl`s defects seen throughout. There is preserved lumbar lordosis without significant spondylolisthesis. There is moderate degenerative disc disease with disc height loss and marginal osteophyte formation worst at the L2-L3 level. There is tyld-aa-lcypopii spinal canal narrowing at the L2-L3 and L3-L4 levels. There is moderate to severe focal narrowing at the L4-L5 level. There is a nondisplaced fracture through the superior L1 endplate without evidence of extension to the posterior elements. The paraspinous soft tissues are grossly within normal limits. Impression: Subtle compression fracture of the anterosuperior L1 endplate without evidence of additional compression fractures or extension to the posterior elements. CT scan - head: Radiologist's impression: INDICATION: Altered mental status. COMPARISON: None. TECHNIQUE: CT of the head without contrast. FINDINGS: Brain, ventricles, and extra-axial spaces: No acute intracranial hemorrhage. Urban-white differentiation is grossly preserved. [id number] hypoattenuating changes in the white matter which are nonspecific, but commonly attributable to chronic microangiopathic change. Mild to moderate parenchymal volume loss with commensurate size of the ventricles and sulci. Bones: No acute osseous findings. Scattered mild mucosal thickening in the paranasal sinuses. Leftward deviation of the nasal septum. Visualized mastoid air cells are clear. Additional findings: Oval sharply marginated right posterior scalp 17 millimeter soft tissue attenuation lesion centered in the subcutaneous fat (2/36). Status post bilateral lens replacement. IMPRESSION: 1. No acute intracranial noncontrast CT findings. 2. Uzmo-id-whwycdwk brain parenchymal involutional changes. 3. Right posterior scalp a 17 millimeter oval soft tissue attenuation lesion which is a nonspecific imaging appearance, although a epidermal inclusion cyst is one differential consideration. Correlate with physical exam. Discharge Plan Discharge Disposition: Home w/ Parent or Adult Date of Admission: 03/18/25 13:30 Attending Provider on Discharge: Sergey J Rivera Primary Care Provider: Provider,Not a Local Condition: Guarded Anticipated Discharge Date/Time: 03/19/25 12:31 Discharge Medications: Continued acetaminophen [Acetaminophen Extra Strength] 500 mg tablet 1,000 mg PO TID PRN aloe vera 25 mg capsule 50 mg PO DAILY apple cider vinegar 1 tab PO DAILY ascorbic acid (vitamin C) 500 mg capsule 500 mg PO DAILY cholecalciferol (vitamin D3) 50 mcg (2,000 unit) capsule 50 mcg PO HS cyanocobalamin (vitamin B-12) [B-12 DOTS] 500 mcg tablet 500 mcg PO DAILY Jardiance 25 mg tablet 25 mg PO QPM ferrous sulfate [FeroSul] 325 mg (65 mg iron) tablet 325 mg PO DAILY lisinopril 2.5 mg tablet 2.5 mg PO DAILY metformin 750 mg tablet extended release 24 hr 1,500 mg PO QPM omeprazole 20 mg capsule,delayed release(DR/EC) 20 mg PO DAILY pravastatin 40 mg tablet 40 mg PO HS QC Turmeric Complex 500 mg capsule 2 cap PO DAILY Discharge Orders: Discharge Order (Routine); Ordered 03/19/25 Ordered By: Sergey Rivera Patient Education: Acute Low Back Pain (ED), Altered Mental Status (ED) Additional Instructions: Physical therapy and occupational therapy to evaluate and treat at assisted living. Activity Level: Activity as Tolerated and Use Walker Discharge Diet: Regular Follow Up Appointments: Provider,Not a Local [Primary Care Provider, Family Practice] Forms: [facility], [facility] Instructions
--- NOTE | 2025-03-19 13:40 | PC.NURSE ---
Discharge: Patient jumps between pleasant and irritable quickly, only oriented to self. Patient is vitally stable, lungs clear, BS WNL, IVs removed, catheters intact. Patient denies pain but gets angry when her lower extremities are palpated saying they hurt, scheduled tylenol given. Patient tolerating regular diet, blood sugars 147 and 163. Patient's niece signed belongings sheet and discharge form, patient nor her niece and any questions regarding discharge information.
--- NOTE | 2025-03-19 15:01 | PC.SOCIAL ---
Addendum entered by HELEN Rivera 03/19/25 15:18: Discharge planning: fabric worker secure emailed PT/OT orders for the pt to [facility] at the [facility]. Social work to follow-up as needed. Original Note: Discharge planning: After therapy assessments, it was determined that the pt was not safe to return to [facility] on her own. fabric worker talked to the pt and her niece about the therapy assessments and the pt needing a higher level of care. fabric worker then talked to the pt and her niece about the [facility] on the [facility] and the pt and her niece were very interested in this. fabric worker connected with [facility] at [facility] who can come over and assess the pt around 11:30am here at the hospital. After [facility] met with the pt it was determined that it would not be safe for the pt to come back to [facility] on her own unless the niece or another family member could stay with her over the weekend and provide 24 hour supervision and assistance or the pt went to [facility] on the [facility] campus. It was decided by the pt and her niece that the niece would stay with the pt over the weekend and then the family could reassess on Saturday with [facility] staff a longer term plan for the pt, if needed. [facility] did ask for this worker to send over PT/OT orders for the pt to have their [facility] staff evaluate the pt and get some therapy in place. Social work to follow-up as needed.
== END 2025-03-19 13:27 | disposition home or self-care (01) ==
LOC: ED 12:36 → MEDSURG 13:30
PROVIDERS: Admitting Provider Family Medicine; Emergency Provider Emergency Medicine; Visit Provider Family Medicine
DX: R41.82 Altered mental status, unspecified (principal); M54.50 Low back pain, unspecified; S32.010A Wedge compression fracture of first lumbar vertebra, initial encounter for closed fracture; F03.90 Unspecified dementia, unspecified severity, without behavioral disturbance, psychotic disturbance, mood disturbance, and anxiety; E11.9 Type 2 diabetes mellitus without complications; I10 Essential (primary) hypertension
CPT/HCPCS: 36415; 51798; 70450; 72131; 74177; 80053; 81001; 82565; 82962; 83036; 83605; 83690; 84443; 84484; 85025; 87040; 87631; 93005; 96374; 97161; 97165; 97530; 97535; 99284; 99285; A9270; G0378; J1885; J7030; Q9967